=== PATIENT | male | born 1950 | race Caucasian/White ===

== ENCOUNTER 2018-10-11 10:46 | Emergency (ER) | payer MEDICARE, OTHER ==
[~2018-10-11] VITALS: Ht 167.6 cm; Wt 82.2 kg
[2018-10-11 10:52] VITALS: BP 167/77; PULSE 63; RESP 20; Ht 167.6 cm; Wt 82.2 kg
[2018-10-11] MEDS ORDERED: ACET500C5 PO (13:49)
--- NOTE | 2018-10-11 14:25 | ERD ---
ER Documentation Chief Complaint Chief Complaint Complains of right hand pain after a fall HPI 68-year-old male patient with a past medical history of prostate cancer, diabetes presents to the ED complaining of right hand pain, bilateral knee pain, right rib pain after accidentally falling on uneven curb. Denies any head or neck injuries. Denies any nausea, vomiting, headache, dizziness, abdominal pain, chest pain, shortness of breath, fever, chills. ROS All systems reviewed and are negative except as per history of present illness. Medications Home Meds Active Scripts Acetaminophen* (Tylophen*) 500 Mg Capsule, 1 CAP PO Q6H PRN for PAIN AND OR ELEVATED TEMP, #20 CAP Prov:LEONARDO LEWIS PA-C 10/11/18 PMhx/Soc Hx Alcohol Use: No Hx Substance Use: No Hx Tobacco Use: No Smoking Status: Never smoker FmHx Family History: No diabetes, No coronary disease Physical Exam Vitals Vital Signs Date Temp Pulse Resp B/P (MAP) Pulse Ox O2 O2 Flow FiO2 Time Delivery Rate 10/11/18 97.3 63 20 167/77 96 10:52 (107) Physical Exam Const: [id number], well-nourished. In no acute distress. Head: Atraumatic, normocephalic Eyes: Normal Conjunctiva without injection. No purulent discharge. PERRLA. EOMI ENT: Normal external ear. Ear canal without erythema. Tympanic membrane pearly ovalles without effusion or bulging. Nasal canal clear with normal turbinates. Moist oropharynx without tonsillar exudates. Non-erythematous pharynx. Uvula midline. No drooling. No trismus. Neck: No cervical midline tenderness. Full range of motion. No meningismus. No cervical lymphadenopathy. No JVD. Resp: Clear to auscultation bilaterally. No wheezing, rhonchi, rales, or crackles. No accessory muscle use. No retractions. Cardio: Regular rate and rhythm. No murmurs, rubs or gallops. Abd: Soft, non tender, non distended. Normal bowel sounds. No palpable masses. No rebound tenderness. No guarding. Negative McBurney's Point. Negative Gutierrez's Sign. Skin: Normal skin turgor. No petechiae or rashes Back: No midline tenderness. No CVA tenderness. Ext: No cyanosis, or edema. Distal pulses intact bilaterally. Neur: Awake and alert. Normal gait. Normal coordination. Cranial Nerves II- VII intact. Normal finger to nose. Muscle strength 5/5. Sensation intact. Psych: Normal Mood and Affect Procedures/MDM 68-year-old male patient with no significant past medical history presents to ED complaining of right hand injury, bilateral knee injury, right rib contusion. Patient is afebrile and nontoxic-appearing. A right rib x-ray, bilateral knee x-ray, chest x-ray was ordered to further evaluate patient. IMPRESSION: 1. Advanced degenerative changes of the wrist along with mild to moderate degenerative changes of the hand and diffuse osseous demineralization. 2. No acute osseous abnormality seen. IMPRESSION: 1. Osseous demineralization with moderate degenerative changes of the knee. IMPRESSION: 1. No acute osseous abnormality. Patient is placed in an erica wrap of right hand and bilateral knees. Splint Assessment: Neurovascularly intact pre and post splint placement with good fit. Patient's extremity symptoms have stabilized while they have been evaluated in the department and are appropriate for outpatient follow up. No evidence of fractures, dislocations, compartment syndrome, neurologic injury, vascular injury, open joint, open fracture, tendon laceration, septic arthritis, osteomyelitis, DVT, foreign body, or other emergent conditions. Low suspicion for acute myocardial infarction, pneumothorax, pericarditis, myocarditis, endocarditis, pneumonia, cardiac tamponade, pulmonary embolism, pleural effusion, AAA, aortic dissection, Boerhaave's syndrome, cardiac dysrhythmias,meningitis, intracranial bleed, seizure, stroke, TIA or other emergent conditions. Diagnosis: Injury of hand, Knee injury Discharge medications: Tylenol Follow up with primary care physician in 1-2 days. Instructed patient to return to the ED sooner for any worsening symptoms. Patient's questions were answered. Patient is hemodynamically stable. Patient understood and agreed with discharge plan. Patient discharged stable. Disclaimer: Inadvertent spelling and grammatical errors are likely due to EHR/dictation software use and do not reflect on the overall quality of patient care. Also, please note that the electronic time recorded on this note does not necessarily reflect the actual time of the patient encounter. Departure Diagnosis: Primary Impression: Injury of hand Encounter type: initial encounter Laterality: right Qualified Codes: S69.91XA - Unspecified injury of right wrist, hand and finger(s), initial encounter Additional Impression: Knee injury Encounter type: initial encounter Laterality: unspecified laterality Qualified Codes: S89.90XA - Unspecified injury of unspecified lower leg, initial encounter Condition: Stable Patient Instructions: Chest Wall Contusion, Knee Sprain, Sprain Hand Referrals: [facility] YOU HAVE RECEIVED A MEDICAL SCREENING EXAM AND THE RESULTS INDICATE THAT YOU DO NOT HAVE A CONDITION THAT REQUIRES URGENT TREATMENT IN THE EMERGENCY DEPARTMENT. FURTHER EVALUATION AND TREATMENT OF YOUR CONDITION CAN WAIT UNTIL YOU ARE SEEN IN YOUR DOCTORS OFFICE WITHIN THE NEXT 1-2 DAYS. IT IS YOUR RESPONSIBILITY TO MAKE AN APPOINTMENT FOR FOLOW-UP CARE. IF YOU HAVE A PRIMARY DOCTOR --you should call your primary doctor and schedule an appointment IF YOU DO NOT HAVE A PRIMARY DOCTOR YOU CAN CALL OUR PHYSICIAN REFERRAL HOTLINE AT IF YOU CAN NOT AFFORD TO SEE A PHYSICIAN YOU CAN CHOSE FROM THE FOLLOWING [facility] [address] [facility]. [facility] [address] [facility] [facility] [address] [facility] [address] [facility] [address] [facility]. [facility] [address] [facility] [place]. [facility] YOU HAVE RECEIVED A MEDICAL SCREENING EXAM AND THE RESULTS INDICATE THAT YOU DO NOT HAVE A CONDITION THAT REQUIRES URGENT TREATMENT IN THE EMERGENCY DEPARTMENT. FURTHER EVALUATION AND TREATMENT OF YOUR CONDITION CAN WAIT UNTIL YOU ARE SEEN IN YOUR DOCTORS OFFICE WITHIN THE NEXT 1-2 DAYS. IT IS YOUR RESPONSIBILITY TO MAKE AN APPOINTMENT FOR FOLOW-UP CARE. IF YOU HAVE A PRIMARY DOCTOR --you should call your primary doctor and schedule and appointment IF YOU DO NOT HAVE A PRIMARY DOCTOR YOU CAN CALL OUR PHYSICIAN REFERRAL HOTLINE AT . IF YOU CAN NOT AFFORD TO SEE A PHYSICIAN YOU CAN CHOSE FROM THE FOLLOWING [facility] INSTITUTIONS: [facility] [address] [place] [address] [facility] [address] [place] [address] [facility] [address] [place] [address] [facility] URGENT CARE/SPECIALTIES Additional Instructions: Call your primary care doctor TOMORROW for an appointment during the next 2-3 days.See the doctor sooner or return here if your condition worsens before your appointment time. LEONARDO LEWIS PA-C Oct 11, 2018 14:25
== END 2018-10-11 14:12 | disposition home or self-care (01) ==
LOC: FTE 10:46
DX: S69.91XA Unspecified injury of right wrist, hand and finger(s), initial encounter (principal); S89.91XA Unspecified injury of right lower leg, initial encounter; E11.9 Type 2 diabetes mellitus without complications; W10.1XXA Fall (on)(from) sidewalk curb, initial encounter; Y92.9 Unspecified place or not applicable; Z85.46 Personal history of malignant neoplasm of prostate
CPT/HCPCS: 71045; 73562

== ENCOUNTER 2018-11-24 08:51 | Inpatient (IN) | payer MEDICARE, OTHER ==
[~2018-11-24] VITALS: Ht 170.2 cm; Wt 80.5 kg
[~2018-11-24 08:51] MED LIST: ACET500C5 PO
[2018-11-24] MEDS ORDERED: METF100010 PO (10:36)
[2018-11-24] MEDS ORDERED: METO-407 PO (10:36)
[2018-11-24] MEDS ORDERED: CHOL200056 PO (10:37)
[2018-11-24] MEDS ORDERED: LINA5TAB PO (10:37)
[2018-11-24] MEDS ORDERED: FINA5TAB4 PO (10:38)
[2018-11-24] MEDS ORDERED: FOLI-49 PO (10:38)
[2018-11-24] MEDS ORDERED: ASPI-817 PO (10:38)
[2018-11-24] MEDS ORDERED: MET25 PO (10:40)
[2018-11-24] MEDS ORDERED: ATOR40TA68 PO (10:41)
[2018-11-24] MEDS ORDERED: OMEP40CA6 PO (10:41)
[2018-11-24] MEDS ORDERED: LOSA100T15 PO (10:42)
--- NOTE | 2018-11-24 10:57 | ERD ---
ER Documentation Chief Complaint Chief Complaint reported black/red stoos on radiation for prostate ca HPI 68-year-old male presents the emergency department complaining of GI bleed symptoms. Patient states that on and off for approximately 3 months now he has had occasional episodes of both black and red stool. He reports no abdominal pain. He reports of the last few days this is become increasing in frequency. He reports no fevers, chills, hemoptysis or hematemesis. Patient reports no hematuria. He reports no lightheadedness or other anemia related symptoms. ROS All systems reviewed and are negative except as per history of present illness. Medications Home Meds Reported Medications Losartan Potassium* (Losartan Potassium*) 100 Mg Tablet, 100 MG PO DAILY, TAB 11/24/18 Atorvastatin* (Atorvastatin*) 40 Mg Tablet, 40 MG PO QHS, #30 TAB 11/24/18 Omeprazole* (Omeprazole*) 40 Mg Capsule.dr, 40 MG PO BID, #30 CAP 11/24/18 Methotrexate* (Methotrexate*) 2.5 Mg Tab, 10 MG PO DAILY, TAB 11/24/18 Folic Acid* (Folic Acid*) 1 Mg Tablet, 1 MG PO DAILY, TAB 11/24/18 Aspirin* (Aspirin* EC) 81 Mg Tablet.dr, 81 MG PO DAILY, TAB 11/24/18 Finasteride* (Finasteride*) 5 Mg Tablet, 5 MG PO DAILY, TAB 11/24/18 Linagliptin (TRADJENTA) 5 Mg Tablet, 5 MG PO DAILY, TAB 11/24/18 Cholecalciferol (Vitamin D3) (Vitamin D-3) 2,000 Unit Tablet, 2000 UNIT PO DAILY, TAB 11/24/18 Metformin Hcl* (Metformin Hcl*) 1,000 Mg Tablet, 1000 MG PO WITH BREAKFAST DINNE, #60 TAB 11/24/18 Metoprolol Tartrate* (Lopressor*) 100 Mg Tablet, 100 MG PO BID, #60 TAB 11/24/18 Discontinued Scripts Acetaminophen* (Tylophen*) 500 Mg Capsule, 1 CAP PO Q6H PRN for PAIN AND OR ELEVATED TEMP, #20 CAP Prov:LEONARDO LEWIS PA-C 10/11/18 Allergies Allergies: Coded Allergies: No Known Allergy (Unverified , 11/24/18) PMhx/Soc History of Surgery: Yes (open heart ) Anesthesia Reaction: No Hx Neurological Disorder: No Hx Respiratory Disorders: No Hx Cardiac Disorders: Yes (htn) Hx Psychiatric Problems: No Hx Miscellaneous Medical Probl: Yes Hx Alcohol Use: No Hx Substance Use: No Hx Tobacco Use: No Smoking Status: Never smoker FmHx Noncontributory for chief complaint Physical Exam Vitals Vital Signs Date Temp Pulse Resp B/P (MAP) Pulse Ox O2 O2 Flow FiO2 Time Delivery Rate 11/24/18 98.4 61 18 175/74 99 09:01 (107) Physical Exam GENERAL: The patient is well developed and appropriate for usual state of health in no apparent distress HEENT: Pupils equal, round, and reactive to light. EOMI. There is no scleral icterus. NECK: C-spine is soft and supple, there is no meningismus. There is no cervical lymphadenopathy. LUNGS: Clear to auscultation bilaterally. There are no rales, wheezes or rhonchi. HEART: Regular rate and rhythm, no murmurs, clicks, rubs or gallops. Sternotomy is noted ABDOMEN: Soft, non-tender, non-distended. There are bowel sounds in all four quadrants. No rebound or guarding. EXTREMITIES: There is no peripheral cyanosis or edema. No focal swelling or erythema. NEURO: The patient moves all four extremities with 5/5 strength. Cranial nerves II - XII are intact. Normal gait. Alert and oriented SKIN: There is no apparent rash or petechiae. Appears pale HEME/LYMPHATIC: There is no evidence of excessive bruising or lymphedema. PSYCHIATRIC: The patient does not appear anxious or depressed. Result Diagram: 11/24/1892511/24/18925 Results 24 hrs Laboratory Tests Test 11/24/18 09:26 White Blood Count 3.9 10^3/ul Red Blood Count 3.82 10^6/ul Hemoglobin 10.8 g/dl Hematocrit 32.9 % Mean Corpuscular Volume 86.1 fl Mean Corpuscular Hemoglobin 28.3 pg Mean Corpuscular Hemoglobin Concent 32.8 g/dl Red Cell Distribution Width 14.4 % Platelet Count 132 10^3/UL Mean Platelet Volume 9.0 fl Immature Granulocytes % 0.500 % Neutrophils % 75.5 % Lymphocytes % 12.4 % Monocytes % 9.0 % Eosinophils % 2.3 % Basophils % 0.3 % Nucleated Red Blood Cells % 0.0 /100WBC Immature Granulocytes # 0.020 10^3/ul Neutrophils # 2.9 10^3/ul Lymphocytes # 0.5 10^3/ul Monocytes # 0.4 10^3/ul Eosinophils # 0.1 10^3/ul Basophils # 0.0 10^3/ul Nucleated Red Blood Cells # 0.0 10^3/ul Prothrombin Time 12.7 Sec Prothrombin Time Ratio 1.0 INR International Normalized Ratio 0.94 Activated Partial Thromboplast Time 29.2 Sec Sodium Level 142 mmol/L Potassium Level 4.0 mmol/L Chloride Level 106 mmol/L Carbon Dioxide Level 25 mmol/L Anion Gap 11 Blood Urea Nitrogen 23 mg/dl Creatinine 0.83 mg/dl Est Glomerular Filtrat Rate mL/min > 60 mL/min Glucose Level 224 mg/dl Calcium Level 9.5 mg/dl Total Bilirubin 0.4 mg/dl Direct Bilirubin 0.00 mg/dl Indirect Bilirubin 0.4 mg/dl Aspartate Amino Transf (AST/SGOT) 28 IU/L Alanine Aminotransferase (ALT/SGPT) 37 IU/L Alkaline Phosphatase 135 IU/L Troponin I < 0.012 ng/ml Total Protein 7.6 g/dl Albumin 4.5 g/dl Globulin 3.10 g/dl Albumin/Globulin Ratio 1.45 Procedures/MDM Patient was taken to a room, seen and evaluated. Comfort measures were initiated. Diagnostic tests were ordered and reviewed. 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 His abdominal exam is nontoxic with no evidence of diverticulitis. His hemoglobin is borderline low, but not requiring emergent transfusion. Given his comorbid conditions and risk factors, he will be admitted to the hospital for consideration of endoscopy/colonoscopy and other diagnostic work-up as well as monitoring of his hemoglobin. Departure Diagnosis: Primary Impression: GI bleed Additional Impression: Anemia Condition: Fair JAMIE KIMBALL Nov 24, 2018 10:57
[2018-11-24] MEDS ORDERED: NACL 0.9% 3 ML SYG IV SCH (14:30)
[2018-11-24] MEDS ORDERED: ONDANSETRON 4 MG INJ IV PRN (14:30)
[2018-11-24] MEDS ORDERED: ACETAMINOPHEN 325 MG TAB PO PRN (14:30)
[2018-11-24] MEDS ORDERED: DOCUSATE SODIUM 100 MG CAP PO PRN (14:30)
--- NOTE | 2018-11-24 14:40 | HP ---
Date/Time of Note Date/Time of Note DATE: 11/24/18 TIME: 14:32 Assessment/Plan VTE Prophylaxis SCD applied (from Nsg): Yes Pharmacological prophylaxis: NA/contraindicated Pharm contraindication: bleeding Lines/Catheters IV Catheter Type (from Nrsg): Saline Lock Assessment/Plan Hospital Course SUBJECTIVE: Seen and evaluated patient did ER room 1. Complaining of black stool, no acute distress. OBJECTIVE: Vital signs-see below PHYSICAL EXAM: Constitutional: Well-developed, well-nourished not in acute distress. HEENT: Head atraumatic and normocephalic. Eyes: Extraocular muscles intact. Anicteric sclerae. Pupils equal bilaterally, reactive to light. NECK: Supple without lymph node. CHEST: Clear and good breath sounds equally. No wheezing. No rhonchi. HEART: S1, S2. Regular rate and rhythm. ABDOMEN: Soft with no rebound tenderness. Bowel sounds were present. EXTREMITIES: Full range of motion in all the extremities. No cyanosis, clubbing or edema. NEUROLOGIC: Alert and oriented x3. No focal deficit. No sensory deficit. PSYCHOSOCIAL: In a good mood. No signs of depression. INTEGUMENTARY: Moist mucous membranes. Good skin turgor, intact. ASSESSMENT AND PLAN: 68-year-old male with history of prostate cancer, underwent chemo and radiation, coronary artery disease/CABG x5 vessels, vitamin D deficiency, type 2 diabetes, anemia, hypertension, dyslipidemia,here w/black stool x3-month duration who is also on aspirin.... Melena/ rectal bleed. Rule out UGIB/Gastritis/PUD vs other -Hold aspirin -N.p.o. and GI consult for EGD evaluation -Empiric PPI -Stool OB Anemia, acute vs chronic -Stable H&H. We will continue to trend H&H and will transfuse if indicated. -Obtain iron panel to a.m. labs and treat accordingly. Coronary artery disease/CABG x5 -Resume home medications except aspirin in light of #1. DMII -Resume Tradjenta and hold metformin. - Bolus/basal insulin Hypertension -Stable. Resume home medications Dyslipidemia -Rosuvastatin Prostate cancer -Status post radiation. Resume home medications Vitamin D deficiency. -resume sup DVT prophylaxis: SCDs PUD prophylaxis: PPI Rest of the management depend on hospital course. Next Approximately 60 m spent on this history and physical. Patient was seen in collaboration with Dr. Baker. Result Diagram: 11/24/1892511/24/18 0926 Results 24hrs Laboratory Tests Test 11/24/18 09:26 White Blood Count 3.9 L Red Blood Count 3.82 L Hemoglobin 10.8 L Hematocrit 32.9 L Mean Corpuscular Volume 86.1 Mean Corpuscular Hemoglobin 28.3 L Mean Corpuscular Hemoglobin Concent 32.8 Red Cell Distribution Width 14.4 Platelet Count 132 L Mean Platelet Volume 9.0 Immature Granulocytes % 0.500 H Neutrophils % 75.5 Lymphocytes % 12.4 L Monocytes % 9.0 Eosinophils % 2.3 Basophils % 0.3 Nucleated Red Blood Cells % 0.0 Immature Granulocytes # 0.020 Neutrophils # 2.9 Lymphocytes # 0.5 L Monocytes # 0.4 Eosinophils # 0.1 Basophils # 0.0 Nucleated Red Blood Cells # 0.0 Prothrombin Time 12.7 Prothrombin Time Ratio 1.0 INR International Normalized Ratio 0.94 Activated Partial Thromboplast Time 29.2 Sodium Level 142 Potassium Level 4.0 Chloride Level 106 Carbon Dioxide Level 25 Anion Gap 11 Blood Urea Nitrogen 23 H Creatinine 0.83 Est Glomerular Filtrat Rate mL/min > 60 Glucose Level 224 H Calcium Level 9.5 Total Bilirubin 0.4 Direct Bilirubin 0.00 Indirect Bilirubin 0.4 Aspartate Amino Transf (AST/SGOT) 28 Alanine Aminotransferase (ALT/SGPT) 37 Alkaline Phosphatase 135 H Troponin I < 0.012 Total Protein 7.6 Albumin 4.5 Globulin 3.10 Albumin/Globulin Ratio 1.45 HPI/ROS Admit Date/Time Admit Date/Time Hx of Present Illness This is a 68-year-old male with a history of prostate cancer, underwent chemo and radiation, coronary artery disease/CABG x5 vessels, vitamin D deficiency, type 2 diabetes, anemia, hypertension, dyslipidemia, presented to the emergency room for evaluation of black stool x3-month duration. Patient also had associated acid reflux/heart burn. Patient denied nausea, vomiting, hematochezia, hematemesis, hemoptysis, abdominal pain, fever constipation, diarrhea. Patient also denied chest pain, palpitation, dizziness, headache, loss of consciousness, speech difficulties, vision changes or others. In the emergency room, initial labs showed hemoglobin 10.8, hematocrit 32.9, glucose 224. Otherwise unremarkable. Coag studies normal. ROS A 12 point review of system was assessed and is negative other than what is mentioned in HPI. PMH/Family/Social Past Medical History See HPI Medications Current Medications Atorvastatin Calcium (Lipitor) 40 mg QHS PO ; Start 11/24/18 at 21:00; Status UNV Finasteride (Proscar) 5 mg DAILY PO ; Start 11/25/18 at 09:00; Status UNV Folic Acid (Folic Acid) 1 mg DAILY PO ; Start 11/25/18 at 09:00; Status UNV Linagliptin (Tradjenta) 5 mg DAILY PO ; Start 11/25/18 at 09:00; Status UNV Losartan Potassium (Cozaar) 100 mg DAILY PO ; Start 11/25/18 at 09:00; Status UNV Methotrexate (Methotrexate) 10 mg DAILY PO ; Start 11/25/18 at 09:00; Status UNV Metoprolol Tartrate (Lopressor) 100 mg BID PO ; Start 11/24/18 at 21:00; Status UNV Miscellaneous Information 2,000 unit DAILY PO ; Start 11/25/18 at 09:00; Status UNV Pantoprazole (Protonix Iv) 40 mg BID@06,18 IV ; Start 11/24/18 at 18:00; Status UNV IV Flush (NS 3 ml) 3 ml PER PROTOCOL IV ; Start 11/24/18 at 14:30; Status UNV Ondansetron HCl (Zofran Inj) 4 mg Q6H PRN IV NAUSEA/VOMITING; Start 11/24/18 at 14:30; Status UNV Acetaminophen (Tylenol Tab) 650 mg Q6H PRN PO .PAIN 1-3 OR TEMP; Start 11/24/18 at 14:30; Status UNV Docusate Sodium (Colace) 100 mg Q12H PRN PO .CONSTIPATION; Start 11/24/18 at 14:30; Status UNV Miscellaneous Information (* Miscellaneous Pharmacy Order) Discontinue current oral sulfonylur... ONCE ONCE XX ; Start 11/24/18 at 14:30; Stop 11/24/18 at 14:31; Status UNV Diagnostic Test (Pha) (Accu-Chek) 1 ea XX ; Start 11/25/18 at 02:00; Status UNV Insulin Glargine (Lantus) 12 units DAILY@2000 SC ; Start 11/24/18 at 20:00; Status UNV Miscellaneous Information (* Miscellaneous Pharmacy Order) HYPOGLYCEMIA PROTOCOL w... ONCE ONCE XX ; Start 11/24/18 at 14:30; Stop 11/24/18 at 14:31; Status UNV Insulin Aspart (Novolog Insulin Pen) NOVOLOG *MILD* ALGORI... Q4 SC ; Start 11/24/18 at 17:00; Status UNV Miscellaneous Information (* Miscellaneous Pharmacy Order) Discontinue all previ... ONCE ONCE XX ; Start 11/24/18 at 14:30; Stop 11/24/18 at 14:31; Status UNV Coded Allergies: No Known Allergy (Unverified , 11/24/18) Past Surgical History See HPI Social History Denied history of alcohol, smoking or illicit drug use Smoking Status: Never smoker Exam/Review of Systems Vital Signs Vitals Vital Signs Date Temp Pulse Resp B/P (MAP) Pulse Ox O2 O2 Flow FiO2 Time Delivery Rate 11/24/18 54 16 159/70 99 Room Air 12:00 (99) 11/24/18 98.4 09:01 FARIDEH BARCENAS NP Nov 24, 2018 14:40
[2018-11-24] MEDS ORDERED: DEXTROSE 50% 50 ML SYRINGE IV PRN ×2 (15:00)
[2018-11-24] MEDS ORDERED: GLUCAGON 1 MG INJ IM PRN (15:00)
[2018-11-24] MEDS ORDERED: BISACODYL (EC) 5 MG TAB PO ONE (15:00)
[2018-11-24] MEDS ORDERED: GLUCOSE GEL 15 GRAM TUBE BUCCAL PRN (15:00)
[2018-11-24] MEDS ORDERED: GLUCOSE GEL 15 GRAM TUBE PO PRN ×2 (15:00)
--- NOTE | 2018-11-24 15:31 | CONS ---
Assessment/Plan Assessment/Plan Hospital Course (Demo Recall) Summary Assessment and Plan: Assessment: Melena/BRBPR -R/o PUD vs gastritis vs proctitis vs other Normocytic anemia, mild Abdominal apin Coronary artery disease CABG x5 DM, type 2 Hypertension History of prostate cancer -S/p radiation Dyslipidemia Plan: Clear liquid diet NPO after 11/25/18 0900 EG/colonoscopy 11/25/18 Endoscopy - risks/benefits/alternatives/indications of procedure and sedation/anesthesia discussed with patient who states understanding and gives informed consent to proceed. Monitor labs Patient seen in collaboration with Dr. Gibbons CC: MARINA GIBBONS MD ; Consultation Date/Type/Reason Admit Date/Time Date of Consultation: Nov 24, 2018 Type of Consult GI Reason for Consultation GI bleed Date/Time of Note DATE: 11/24/18 TIME: 15:23 Hx of Present Illness This is a 68-year-old male with past medical history of Coronary artery disease, CABG x5, diabetes, hypertension, dyslipidemia, prostate cancer status post radiation, who presented to the hospital with complaints of intermittent abdominal pain and intermittent diarrhea as well as black stool and bright red blood per rectum x3 months. Been consulted for further evaluation hematology on admission. Hemoglobin is 10.8, hematocrit 32.9, MCV 86.1, MCH 28.3, INR 0.94 and normal LFTs with a mildly elevated alkaline phosphatase of 135 so far patient has had a chest x-ray showing no acute pulmonary disease cardiomegaly status post CABG. He states he did not come to the hospital earlier as he felt like stool was secondary to consumption of reasons mixed with tea. He notes daily aspirin use denies other NSAID use, additionally denies drug use or current smoking. He states his last EGD colonoscopy was in 2016 per patient both were negative. Given findings I discussed plan for EGD and colonoscopy with patient reviewed risk/benefits/alternatives of both sedation and procedures he verbalized understanding is agreeable to both procedures Review of Systems: A 12 system, review was conducted and is negative except as noted in the HPI or here. Past Medical History Home Meds Reported Medications Losartan Potassium* (Losartan Potassium*) 100 Mg Tablet, 100 MG PO DAILY, TAB 11/24/18 Atorvastatin* (Atorvastatin*) 40 Mg Tablet, 40 MG PO QHS, #30 TAB 11/24/18 Omeprazole* (Omeprazole*) 40 Mg Capsule.dr, 40 MG PO BID, #30 CAP 11/24/18 Methotrexate* (Methotrexate*) 2.5 Mg Tab, 10 MG PO DAILY, TAB 11/24/18 Folic Acid* (Folic Acid*) 1 Mg Tablet, 1 MG PO DAILY, TAB 11/24/18 Aspirin* (Aspirin* EC) 81 Mg Tablet.dr, 81 MG PO DAILY, TAB 11/24/18 Finasteride* (Finasteride*) 5 Mg Tablet, 5 MG PO DAILY, TAB 11/24/18 Linagliptin (TRADJENTA) 5 Mg Tablet, 5 MG PO DAILY, TAB 11/24/18 Cholecalciferol (Vitamin D3) (Vitamin D-3) 2,000 Unit Tablet, 2000 UNIT PO DAILY, TAB 11/24/18 Metformin Hcl* (Metformin Hcl*) 1,000 Mg Tablet, 1000 MG PO WITH BREAKFAST DINNE, #60 TAB 11/24/18 Metoprolol Tartrate* (Lopressor*) 100 Mg Tablet, 100 MG PO BID, #60 TAB 11/24/18 Discontinued Scripts Acetaminophen* (Tylophen*) 500 Mg Capsule, 1 CAP PO Q6H PRN for PAIN AND OR ELEVATED TEMP, #20 CAP Prov:LEONARDO LEWIS PA-C 10/11/18 Medications Current Medications Atorvastatin Calcium (Lipitor) 40 mg QHS PO ; Start 11/24/18 at 21:00 Finasteride (Proscar) 5 mg DAILY PO ; Start 11/25/18 at 09:00 Folic Acid (Folic Acid) 1 mg DAILY PO ; Start 11/25/18 at 09:00 Linagliptin (Tradjenta) 5 mg DAILY PO ; Start 11/25/18 at 09:00 Losartan Potassium (Cozaar) 100 mg DAILY PO ; Start 11/25/18 at 09:00 Methotrexate (Methotrexate) 10 mg Sa@0900 PO ; Start 11/27/18 at 09:00 Metoprolol Tartrate (Lopressor) 100 mg BID PO ; Start 11/24/18 at 21:00 Cholecalciferol (Vitamin D) 2,000 unit DAILY PO ; Start 11/25/18 at 09:00 Pantoprazole (Protonix Iv) 40 mg BID@06,18 IV ; Start 11/24/18 at 18:00 IV Flush (NS 3 ml) 3 ml PER PROTOCOL IV ; Start 11/24/18 at 14:30 Ondansetron HCl (Zofran Inj) 4 mg Q6H PRN IV NAUSEA/VOMITING; Start 11/24/18 at 14:30 Acetaminophen (Tylenol Tab) 650 mg Q6H PRN PO .PAIN 1-3 OR TEMP; Start 11/24/18 at 14:30 Docusate Sodium (Colace) 100 mg Q12H PRN PO .CONSTIPATION; Start 11/24/18 at 14:30 Diagnostic Test (Pha) (Accu-Chek) 1 ea 02 XX ; Start 11/25/18 at 02:00 Insulin Glargine (Lantus) 12 units DAILY@2000 SC ; Start 11/24/18 at 20:00 Insulin Aspart (Novolog Insulin Pen) NOVOLOG *MILD* ALGORI... Q4 SC ; Start 11/24/18 at 17:00 Magnesium Citrate (Citroma) 300 ml ONCE ONCE PO ; Start 11/24/18 at 17:30; Stop 11/24/18 at 17:31 Polyethylene Glycol (Miralax) 119 gm ONCE ONCE PO ; Start 11/24/18 at 18:30; Stop 11/24/18 at 18:31 Polyethylene Glycol (Miralax) 119 gm 2ND DOSE (GI PREP) ONCE PO ; Start 11/25/18 at 06:00; Stop 11/25/18 at 06:01 Bisacodyl (Dulcolax) 10 mg 2ND DOSE (GI PREP) ONCE PO ; Start 11/25/18 at 08:00; Stop 11/25/18 at 08:01 Miscellaneous Information 1 ea NOTE XX ; Start 11/24/18 at 15:00 Glucose (Glutose) 15 gm Q15M PRN PO DECREASED GLUCOSE; Start 11/24/18 at 15:00 Glucose (Glutose) 22.5 gm Q15M PRN PO DECREASED GLUCOSE; Start 11/24/18 at 15:00 Dextrose (D50w Syringe) 25 ml Q15M PRN IV DECREASED GLUCOSE; Start 11/24/18 at 15:00 Dextrose (D50w Syringe) 50 ml Q15M PRN IV DECREASED GLUCOSE; Start 11/24/18 at 15:00 Glucagon (Glucagen) 1 mg Q15M PRN IM DECREASED GLUCOSE; Start 11/24/18 at 15:00 Glucose (Glutose) 15 gm Q15M PRN BUCCAL DECREASED GLUCOSE; Start 11/24/18 at 15:00 Allergies: Coded Allergies: No Known Allergy (Unverified , 11/24/18) Social History Smoking Status: Never smoker Exam/Review of Systems Exam Vitals Vital Signs Date Temp Pulse Resp B/P (MAP) Pulse Ox O2 O2 Flow FiO2 Time Delivery Rate 11/24/18 54 16 159/70 99 Room Air 12:00 (99) 11/24/18 98.4 09:01 Constitutional: alert, oriented Psych: no complaints, nl mood/affect Head: normocephalic, atraumatic Eyes: nl conjunctiva, EOMI ENMT: nl external ears & nose, nl lips & teeth Neck: supple, non-tender Respiratory: clear to auscultation, normal air movement Cardiovascular: regular rate and rhythm, nl pulses Gastrointestinal: soft, bowel sounds, tender (epigastric ) Genitourinary - Male: nl penis Musculoskeletal: nl extremities to inspection Results Result Diagram: 11/24/1826 11/24/18 0926 Results 24hrs Laboratory Tests Test 11/24/18 09:26 White Blood Count 3.9 L Red Blood Count 3.82 L Hemoglobin 10.8 L Hematocrit 32.9 L Mean Corpuscular Volume 86.1 Mean Corpuscular Hemoglobin 28.3 L Mean Corpuscular Hemoglobin Concent 32.8 Red Cell Distribution Width 14.4 Platelet Count 132 L Mean Platelet Volume 9.0 Immature Granulocytes % 0.500 H Neutrophils % 75.5 Lymphocytes % 12.4 L Monocytes % 9.0 Eosinophils % 2.3 Basophils % 0.3 Nucleated Red Blood Cells % 0.0 Immature Granulocytes # 0.020 Neutrophils # 2.9 Lymphocytes # 0.5 L Monocytes # 0.4 Eosinophils # 0.1 Basophils # 0.0 Nucleated Red Blood Cells # 0.0 Prothrombin Time 12.7 Prothrombin Time Ratio 1.0 INR International Normalized Ratio 0.94 Activated Partial Thromboplast Time 29.2 Sodium Level 142 Potassium Level 4.0 Chloride Level 106 Carbon Dioxide Level 25 Anion Gap 11 Blood Urea Nitrogen 23 H Creatinine 0.83 Est Glomerular Filtrat Rate mL/min > 60 Glucose Level 224 H Calcium Level 9.5 Total Bilirubin 0.4 Direct Bilirubin 0.00 Indirect Bilirubin 0.4 Aspartate Amino Transf (AST/SGOT) 28 Alanine Aminotransferase (ALT/SGPT) 37 Alkaline Phosphatase 135 H Troponin I < 0.012 Total Protein 7.6 Albumin 4.5 Globulin 3.10 Albumin/Globulin Ratio 1.45 Carcinoembryonic Antigen < 0.3 Medications Medication Current Medications Atorvastatin Calcium (Lipitor) 40 mg QHS PO ; Start 11/24/18 at 21:00 Finasteride (Proscar) 5 mg DAILY PO ; Start 11/25/18 at 09:00 Folic Acid (Folic Acid) 1 mg DAILY PO ; Start 11/25/18 at 09:00 Linagliptin (Tradjenta) 5 mg DAILY PO ; Start 11/25/18 at 09:00 Losartan Potassium (Cozaar) 100 mg DAILY PO ; Start 11/25/18 at 09:00 Methotrexate (Methotrexate) 10 mg Sa@0900 PO ; Start 11/27/18 at 09:00 Metoprolol Tartrate (Lopressor) 100 mg BID PO ; Start 11/24/18 at 21:00 Cholecalciferol (Vitamin D) 2,000 unit DAILY PO ; Start 11/25/18 at 09:00 Pantoprazole (Protonix Iv) 40 mg BID@,18 IV ; Start 11/24/18 at 18:00 IV Flush (NS 3 ml) 3 ml PER PROTOCOL IV ; Start 11/24/18 at 14:30 Ondansetron HCl (Zofran Inj) 4 mg Q6H PRN IV NAUSEA/VOMITING; Start 11/24/18 at 14:30 Acetaminophen (Tylenol Tab) 650 mg Q6H PRN PO .PAIN 1-3 OR TEMP; Start 11/24/18 at 14:30 Docusate Sodium (Colace) 100 mg Q12H PRN PO .CONSTIPATION; Start 11/24/18 at 14:30 Diagnostic Test (Pha) (Accu-Chek) 1 ea 02 XX ; Start 11/25/18 at 02:00 Insulin Glargine (Lantus) 12 units DAILY@2000 SC ; Start 11/24/18 at 20:00 Insulin Aspart (Novolog Insulin Pen) NOVOLOG *MILD* ALGORI... Q4 SC ; Start 11/24/18 at 17:00 Magnesium Citrate (Citroma) 300 ml ONCE ONCE PO ; Start 11/24/18 at 17:30; Stop 11/24/18 at 17:31 Polyethylene Glycol (Miralax) 119 gm ONCE ONCE PO ; Start 11/24/18 at 18:30; Stop 11/24/18 at 18:31 Polyethylene Glycol (Miralax) 119 gm 2ND DOSE (GI PREP) ONCE PO ; Start 11/25/18 at 06:00; Stop 11/25/18 at 06:01 Bisacodyl (Dulcolax) 10 mg 2ND DOSE (GI PREP) ONCE PO ; Start 11/25/18 at 08:00; Stop 11/25/18 at 08:01 Miscellaneous Information 1 ea NOTE XX ; Start 11/24/18 at 15:00 Glucose (Glutose) 15 gm Q15M PRN PO DECREASED GLUCOSE; Start 11/24/18 at 15:00 Glucose (Glutose) 22.5 gm Q15M PRN PO DECREASED GLUCOSE; Start 11/24/18 at 15:00 Dextrose (D50w Syringe) 25 ml Q15M PRN IV DECREASED GLUCOSE; Start 11/24/18 at 15:00 Dextrose (D50w Syringe) 50 ml Q15M PRN IV DECREASED GLUCOSE; Start 11/24/18 at 15:00 Glucagon (Glucagen) 1 mg Q15M PRN IM DECREASED GLUCOSE; Start 11/24/18 at 15:00 Glucose (Glutose) 15 gm Q15M PRN BUCCAL DECREASED GLUCOSE; Start 11/24/18 at 15:00 TYLOR TADEO Nov 24, 2018 15:31
[2018-11-24] MEDS ORDERED: MAGNESIUM CITRATE 300 ML BTL PO ONE (17:30)
[2018-11-24] MEDS ORDERED: POLYETHYLENE GLYCOL 3350 119 GM POWDER PO ONE (18:30)
[2018-11-24 19:40] VITALS: Ht 170.2 cm; Wt 80.5 kg
[2018-11-24 20:26] VITALS: BP 186/82; PULSE 53; RESP 18
[2018-11-24 20:45] VITALS: BP 169/77
[2018-11-24] MEDS: INSULIN ASPART [NOVOLOG] 3 ML PEN SC SCH (21:00)
[2018-11-24] MEDS: ATORVASTATIN 40 MG TAB PO SCH (21:47)
[2018-11-24] MEDS: PANTOPRAZOLE 40 MG INJ IV SCH (22:38)
[2018-11-24] MEDS: INSULIN GLARGINE [LANTus] (100 UNITS/ML) SYG SC SCH (23:00)
[2018-11-24] MEDS: METOPROLOL 100 MG TAB PO SCH (23:27)
[2018-11-25] VITALS (12 sets, daily range): BP systolic 109–162; BP diastolic 59–82; PULSE 53–65; RESP 16–22
[2018-11-25] MEDS: INSULIN ASPART [NOVOLOG] 3 ML PEN SC SCH ×6 (01:22→20:55)
[2018-11-25] MEDS ORDERED: ACCU-CHEK XX SCH (02:00)
[2018-11-25] MEDS ORDERED: POLYETHYLENE GLYCOL 3350 119 GM POWDER PO ONE (06:00)
[2018-11-25] MEDS: PANTOPRAZOLE 40 MG INJ IV SCH ×2 (06:20→17:32)
[2018-11-25] MEDS ORDERED: PROPOFOL 200 MG INJ ONE (07:00)
[2018-11-25] MEDS ORDERED: LIDOCAINE 2% (SDV) 5 ML INJ ONE (07:00)
[2018-11-25] MEDS ORDERED: BISACODYL (EC) 5 MG TAB PO ONE (08:00)
[2018-11-25] MEDS: FOLIC ACID 1 MG TAB PO SCH (08:45)
[2018-11-25] MEDS: CHOLECALCIFEROL 2,000 UNIT CAP PO SCH (08:45)
[2018-11-25] MEDS: FINASTERIDE 5 MG TAB PO SCH (08:46)
[2018-11-25] MEDS: METOPROLOL 100 MG TAB PO SCH ×2 (08:46→20:53)
[2018-11-25] MEDS: LOSARTAN 50 MG TAB PO SCH (08:46)
[2018-11-25] MEDS: LINAGLIPTIN 5 MG TABLET PO SCH (08:50)
--- NOTE | 2018-11-25 12:39 | PN ---
Date/Time of Note Date/Time of Note DATE: 11/25/18 TIME: 12:37 Assessment/Plan VTE Prophylaxis Risk score (from Ns)>0 risk: 4 SCD applied (from Ns): Yes Pharmacological prophylaxis: NA/contraindicated Pharm contraindication: bleeding Lines/Catheters IV [facility]from [facility] Urinary Cath still in place: No Assessment/Plan Hospital Course SUBJECTIVE: No further rectal bleed, melena or abdominal discomfort. OBJECTIVE: Vital signs-see below PHYSICAL EXAM: Constitutional: Well-developed, well-nourished not in acute distress. HEENT: Head atraumatic and normocephalic. Eyes: Extraocular muscles intact. Anicteric sclerae. Pupils equal bilaterally, reactive to light. NECK: Supple without lymph node. CHEST: Clear and good breath sounds equally. No wheezing. No rhonchi. HEART: S1, S2. Regular rate and rhythm. ABDOMEN: Soft with no rebound tenderness. Bowel sounds were present. EXTREMITIES: Full range of motion in all the extremities. No cyanosis, clubbing or edema. NEUROLOGIC: Alert and oriented x3. No focal deficit. No sensory deficit. PSYCHOSOCIAL: In a good mood. No signs of depression. INTEGUMENTARY: Moist mucous membranes. Good skin turgor, intact. ASSESSMENT AND PLAN: 68-year-old male with history of prostate cancer, underwent chemo and radiation, coronary artery disease/CABG x5 vessels, vitamin D deficiency, type 2 diabetes, anemia, hypertension, dyslipidemia,here w/black stool x3-month duration who is also on aspirin.... Melena/ rectal bleed. Rule out UGIB/Gastritis/PUD vs other -Continue holding aspirin -Plan is EGD/colonoscopy today -Empiric PPI -Pending stool OB Anemia, acute vs chronic -Stable H&H. -Iron panel noted. Monitor Coronary artery disease/CABG x5 -Continue medical management except aspirin in light of #1. DMII -Well-controlled. - Bolus/basal insulin/Tradjenta Hypertension -Stable. CONT. home medications Dyslipidemia -cont. statin Prostate cancer -Status post radiation. cont. home medications Vitamin D deficiency. -cont sup DVT prophylaxis: SCDs PUD prophylaxis: PPI Disposition: Follow-up GI recommendations. Follow-up endoscopy/colonoscopy findings. DC planning in 24 hours if no further bleeding and H&H stable. Patient was seen in collaboration with Dr. Baker. Result Diagram: 11/25/18 0551 11/25/18 0551 Results 24hrs Laboratory Tests Test 11/24/18 16:23 11/24/18 21:30 11/24/18 22:56 11/25/18 01:18 Hemoglobin 10.3 L Hematocrit 31.5 L Bedside Glucose 115 140 181 Test 11/25/18 05:22 11/25/18 05:51 11/25/18 08:50 Bedside Glucose 126 158 White Blood Count 4.0 L Red Blood Count 3.88 L Hemoglobin 10.9 L Hematocrit 33.3 L Mean Corpuscular 85.8 Volume Mean Corpuscular 28.1 L Hemoglobin Mean Corpuscular 32.7 Hemoglobin Concent Red Cell 14.5 Distribution Width Platelet Count 134 L Mean Platelet Volume 8.9 Immature 0.300 Granulocytes % Neutrophils % 72.3 Lymphocytes % 12.4 L Monocytes % 12.4 H Eosinophils % 2.3 Basophils % 0.3 Nucleated Red Blood 0.0 Cells % Immature 0.010 Granulocytes # Neutrophils # 2.9 Lymphocytes # 0.5 L Monocytes # 0.5 Eosinophils # 0.1 Basophils # 0.0 Nucleated Red Blood 0.0 Cells # Sodium Level 142 Potassium Level 4.0 Chloride Level 106 Carbon Dioxide Level 26 Anion Gap 10 Blood Urea Nitrogen 16 Creatinine 0.78 Est Glomerular > 60 Filtrat Rate mL/min Glucose Level 143 # Hemoglobin A1c 6.3 H Calcium Level 9.4 Phosphorus Level 5.0 H Magnesium Level 2.0 Total Bilirubin 0.5 Direct Bilirubin 0.00 Indirect Bilirubin 0.5 Aspartate Amino 27 Transf (AST/SGOT) Alanine 35 Aminotransferase (AL T/SGPT) Alkaline Phosphatase 140 H Total Protein 7.2 Albumin 4.3 Globulin 2.90 Albumin/Globulin 1.48 Ratio Triglycerides Level 273 H Cholesterol Level 159 LDL Cholesterol, 78 Calculated HDL Cholesterol 26 L Cholesterol/HDL 6.1 Ratio Exam/Review of Systems Exam Vitals Vital Signs Date Temp Pulse Resp B/P (MAP) Pulse Ox O2 O2 Flow FiO2 Time Delivery Rate 11/25/18 97.8 58 16 158/82 95 Room Air 07:15 (107) Intake and Output 11/24/18 11/24/18 11/25/18 1515:00 23:00 07:00 IntakeIntake Total 1200 ml BalanceBalance 1200 ml Results Results 24hrs Laboratory Tests Test 11/24/18 16:23 11/24/18 21:30 11/24/18 22:56 11/25/18 01:18 Hemoglobin 10.3 L Hematocrit 31.5 L Bedside Glucose 115 140 181 Test 11/25/18 05:22 11/25/18 05:51 11/25/18 08:50 Bedside Glucose 126 158 White Blood Count 4.0 L Red Blood Count 3.88 L Hemoglobin 10.9 L Hematocrit 33.3 L Mean Corpuscular 85.8 Volume Mean Corpuscular 28.1 L Hemoglobin Mean Corpuscular 32.7 Hemoglobin Concent Red Cell 14.5 Distribution Width Platelet Count 134 L Mean Platelet Volume 8.9 Immature 0.300 Granulocytes % Neutrophils % 72.3 Lymphocytes % 12.4 L Monocytes % 12.4 H Eosinophils % 2.3 Basophils % 0.3 Nucleated Red Blood 0.0 Cells % Immature 0.010 Granulocytes # Neutrophils # 2.9 Lymphocytes # 0.5 L Monocytes # 0.5 Eosinophils # 0.1 Basophils # 0.0 Nucleated Red Blood 0.0 Cells # Sodium Level 142 Potassium Level 4.0 Chloride Level 106 Carbon Dioxide Level 26 Anion Gap 10 Blood Urea Nitrogen 16 Creatinine 0.78 Est Glomerular > 60 Filtrat Rate mL/min Glucose Level 143 # Hemoglobin A1c 6.3 H Calcium Level 9.4 Phosphorus Level 5.0 H Magnesium Level 2.0 Total Bilirubin 0.5 Direct Bilirubin 0.00 Indirect Bilirubin 0.5 Aspartate Amino 27 Transf (AST/SGOT) Alanine 35 Aminotransferase (AL T/SGPT) Alkaline Phosphatase 140 H Total Protein 7.2 Albumin 4.3 Globulin 2.90 Albumin/Globulin 1.48 Ratio Triglycerides Level 273 H Cholesterol Level 159 LDL Cholesterol, 78 Calculated HDL Cholesterol 26 L Cholesterol/HDL 6.1 Ratio Medications Medication Current Medications Atorvastatin Calcium (Lipitor) 40 mg QHS PO Last administered on 11/24/18at 21:47; Admin Dose 40 MG; Start 11/24/18 at 21:00 Finasteride (Proscar) 5 mg DAILY PO Last administered on 11/25/18at 08:46; Admin Dose 5 MG; Start 11/25/18 at 09:00 Folic Acid (Folic Acid) 1 mg DAILY PO Last administered on 11/25/18at 08:45; Admin Dose 1 MG; Start 11/25/18 at 09:00 Linagliptin (Tradjenta) 5 mg DAILY PO Last administered on 11/25/18at 08:50; Admin Dose 5 MG; Start 11/25/18 at 09:00 Losartan Potassium (Cozaar) 100 mg DAILY PO Last administered on 11/25/18at 08:46; Admin Dose 100 MG; Start 11/25/18 at 09:00 Methotrexate (Methotrexate) 10 mg Sa@0900 PO ; Start 11/27/18 at 09:00 Metoprolol Tartrate (Lopressor) 100 mg BID PO Last administered on 11/25/18at 08:46; Admin Dose 100 MG; Start 11/24/18 at 21:00 Cholecalciferol (Vitamin D) 2,000 unit DAILY PO Last administered on 11/25/18 08:45; Admin Dose 2,000 UNIT; Start 11/25/18 at 09:00 Pantoprazole (Protonix Iv) 40 mg BID@06,18 IV Last administered on 11/25/18 06:20; Admin Dose 40 MG; Start 11/24/18 at 18:00 IV Flush (NS 3 ml) 3 ml PER PROTOCOL IV ; Start 11/24/18 at 14:30 Ondansetron HCl (Zofran Inj) 4 mg Q6H PRN IV NAUSEA/VOMITING; Start 11/24/18 at 14:30 Acetaminophen (Tylenol Tab) 650 mg Q6H PRN PO .PAIN 1-3 OR TEMP; Start 11/24/18 at 14:30 Docusate Sodium (Colace) 100 mg Q12H PRN PO .CONSTIPATION; Start 11/24/18 at 14:30 Insulin Glargine (Lantus) 12 units DAILY@1999 SC Last administered on 11/24/18at 23:00; Admin Dose 12 UNITS; Start 11/24/18 at 20:00 Insulin Aspart (Novolog Insulin Pen) NOVOLOG *MILD* ALGORI... Q4 SC Last administered on 11/25/18at 08:52; Admin Dose 1 UNIT; Start 11/24/18 at 17:00 Miscellaneous Information 1 ea NOTE XX ; Start 11/24/18 at 15:00 Glucose (Glutose) 15 gm Q15M PRN PO DECREASED GLUCOSE; Start 11/24/18 at 15:00 Glucose (Glutose) 22.5 gm Q15M PRN PO DECREASED GLUCOSE; Start 11/24/18 at 15:00 Dextrose (D50w Syringe) 25 ml Q15M PRN IV DECREASED GLUCOSE; Start 11/24/18 at 15:00 Dextrose (D50w Syringe) 50 ml Q15M PRN IV DECREASED GLUCOSE; Start 11/24/18 at 15:00 Glucagon (Glucagen) 1 mg Q15M PRN IM DECREASED GLUCOSE; Start 11/24/18 at 15:00 Glucose (Glutose) 15 gm Q15M PRN BUCCAL DECREASED GLUCOSE; Start 11/24/18 at 15:00 Miscellaneous Information Patients own medicat... BID@10,16 XX ; Start 11/25/18 at 10:00 FARIDEH BARCENAS NP Nov 25, 2018 12:39
--- NOTE | 2018-11-25 15:26 | HPN ---
Date/Time of Note Date/Time of Note DATE: 11/25/18 TIME: 15:26 Interval H&P Admission Note Pt. seen H&P reviewed: No system changes JYOTHI TOURE Nov 25, 2018 15:26
--- NOTE | 2018-11-25 15:37 | PREAC ---
Date/Time of Note Date/Time of Note DATE: 11/25/18 TIME: 15:34 Anesthesia Eval and Record Evaluation Time Pre-Procedure Interview DATE: 11/25/18 TIME: 15:34 Age 68 Sex male NPO: 8 hrs Preoperative diagnosis melena, gi bleed Planned procedure EGD, colonoscopy Past Medical History Past Medical History: Includes Cardio: HTN, Dyslipidemia, CO, CAD, CABG, CHF Endo: Diabetes Renal: Other (prostate CA) GI: GERD, Other (gi bleed) Heme: Anemia Surgery & Anesthesia Issues No known issue Meds Anticoagulation: No Beta Christine within 24 hr: Yes Reported Medications Losartan Potassium* (Losartan Potassium*) 100 Mg Tablet, 100 MG PO DAILY, TAB 11/24/18 Atorvastatin* (Atorvastatin*) 40 Mg Tablet, 40 MG PO QHS, #30 TAB 11/24/18 Omeprazole* (Omeprazole*) 40 Mg Capsule.dr, 40 MG PO BID, #30 CAP 11/24/18 Methotrexate* (Methotrexate*) 2.5 Mg Tab, 10 MG PO DAILY, TAB 11/24/18 Folic Acid* (Folic Acid*) 1 Mg Tablet, 1 MG PO DAILY, TAB 11/24/18 Aspirin* (Aspirin* EC) 81 Mg Tablet.dr, 81 MG PO DAILY, TAB 11/24/18 Finasteride* (Finasteride*) 5 Mg Tablet, 5 MG PO DAILY, TAB 11/24/18 Linagliptin (TRADJENTA) 5 Mg Tablet, 5 MG PO DAILY, TAB 11/24/18 Cholecalciferol (Vitamin D3) (Vitamin D-3) 2,000 Unit Tablet, 2000 UNIT PO DAILY, TAB 11/24/18 Metformin Hcl* (Metformin Hcl*) 1,000 Mg Tablet, 1000 MG PO WITH BREAKFAST DINNE, #60 TAB 11/24/18 Metoprolol Tartrate* (Lopressor*) 100 Mg Tablet, 100 MG PO BID, #60 TAB 11/24/18 Discontinued Scripts Acetaminophen* (Tylophen*) 500 Mg Capsule, 1 CAP PO Q6H PRN for PAIN AND OR ELEVATED TEMP, #20 CAP Prov:LEONARDO LEWIS PA-C 10/11/18 Current Medications Atorvastatin Calcium (Lipitor) 40 mg QHS PO Last administered on 11/24/18at 21:47; Admin Dose 40 MG; Start 11/24/18 at 21:00 Finasteride (Proscar) 5 mg DAILY PO Last administered on 11/25/18 08:46; Admin Dose 5 MG; Start 11/25/18 at 09:00 Folic Acid (Folic Acid) 1 mg DAILY PO Last administered on 11/25/18 08:45; Admin Dose 1 MG; Start 11/25/18 at 09:00 Linagliptin (Tradjenta) 5 mg DAILY PO Last administered on 11/25/18 08:50; Admin Dose 5 MG; Start 11/25/18 at 09:00 Losartan Potassium (Cozaar) 100 mg DAILY PO Last administered on 11/25/18 08:46; Admin Dose 100 MG; Start 11/25/18 at 09:00 Methotrexate (Methotrexate) 10 mg Sa@0900 PO ; Start 11/27/18 at 09:00 Metoprolol Tartrate (Lopressor) 100 mg BID PO Last administered on 11/25/18 08:46; Admin Dose 100 MG; Start 11/24/18 at 21:00 Cholecalciferol (Vitamin D) 2,000 unit DAILY PO Last administered on 11/25/18 08:45; Admin Dose 2,000 UNIT; Start 11/25/18 at 09:00 Pantoprazole (Protonix Iv) 40 mg BID@06,18 IV Last administered on 11/25/18 06:20; Admin Dose 40 MG; Start 11/24/18 at 18:00 IV Flush (NS 3 ml) 3 ml PER PROTOCOL IV ; Start 11/24/18 at 14:30 Ondansetron HCl (Zofran Inj) 4 mg Q6H PRN IV NAUSEA/VOMITING; Start 11/24/18 at 14:30 Acetaminophen (Tylenol Tab) 650 mg Q6H PRN PO .PAIN 1-3 OR TEMP; Start 11/24/18 at 14:30 Docusate Sodium (Colace) 100 mg Q12H PRN PO .CONSTIPATION; Start 11/24/18 at 14:30 Insulin Glargine (Lantus) 12 units DAILY@2000 SC Last administered on 11/24/18 23:00; Admin Dose 12 UNITS; Start 11/24/18 at 20:00 Insulin Aspart (Novolog Insulin Pen) NOVOLOG *MILD* ALGORI... Q4 SC Last administered on 4/25/19at 14:17; Admin Dose 1 UNIT; Start 11/24/18 at 17:00 Miscellaneous Information 1 ea NOTE XX ; Start 11/24/18 at 15:00 Glucose (Glutose) 15 gm Q15M PRN PO DECREASED GLUCOSE; Start 11/24/18 at 15:00 Glucose (Glutose) 22.5 gm Q15M PRN PO DECREASED GLUCOSE; Start 11/24/18 at 15:00 Dextrose (D50w Syringe) 25 ml Q15M PRN IV DECREASED GLUCOSE; Start 11/24/18 at 15:00 Dextrose (D50w Syringe) 50 ml Q15M PRN IV DECREASED GLUCOSE; Start 11/24/18 at 15:00 Glucagon (Glucagen) 1 mg Q15M PRN IM DECREASED GLUCOSE; Start 11/24/18 at 15:00 Glucose (Glutose) 15 gm Q15M PRN BUCCAL DECREASED GLUCOSE; Start 11/24/18 at 15:00 Miscellaneous Information Patients own medicat... BID@10,16 XX ; Start 11/25/18 at 10:00 Meds reviewed: Yes Allergies Coded Allergies: No Known Allergy (Unverified , 11/24/18) Allergies Reviewed: Yes Labs/Studies Labs Reviewed: Reviewed by anesthesiologist Result Diagram: 11/25/18 0551 11/25/18 0551 Laboratory Tests 11/25/18 05:51 test: N/A Studies: ECG Pre-procedure Exam Last vitals Vital Signs Date Temp Pulse Resp B/P (MAP) Pulse Ox O2 O2 Flow FiO2 Time Delivery Rate 11/25/18 97.9 57 18 141/66 97 Room Air 15:29 (91) Airway: Adequate mouth opening, Adequate thyromental dist Mallampati: Mallampati III Teeth: Normal Lung: Normal Heart: Normal ASA Physical Status ASA physical status: 3 Emergency: E Planned Anesthetic General/MAC: MAC Planned Pain Management Parenteral pain med Pre-operative Attestations Prior to commencing anesthesia and surgery, the patient was re-evaluated, there was verification of: *The patient's identity *The results of appropriate recent lab work and preoperative vital signs *The above evaluation not changing prior to induction *Anesthetic plan, risk benefits, alternative and complications discussed with patient/family; questions answered; patient/family understands, accepts and wishes to proceed. ELINA CHANEY MD Nov 25, 2018 15:36
--- NOTE | 2018-11-25 16:15 | PAC ---
Date/Time of Note Date/Time of Note DATE: 11/25/18 TIME: 16:15 Post-Anesthesia Notes Post-Anesthesia Note Last documented vital signs Vital Signs Date Temp Pulse Resp B/P (MAP) Pulse Ox O2 O2 Flow FiO2 Time Delivery Rate 11/25/18 97.9 57 18 141/66 97 Room Air 15:29 (91) Activity: WNL Respiratory function: WNL Cardiovascular function: WNL Mental status: Baseline Pain reasonably controlled: Yes Hydration appropriate: Yes Nausea/Vomiting absent: Yes ELINA CHANEY MD Nov 25, 2018 16:15
[2018-11-25] MEDS: ATORVASTATIN 40 MG TAB PO SCH (20:53)
[2018-11-25] MEDS: INSULIN GLARGINE [LANTus] (100 UNITS/ML) SYG SC SCH (20:54)
[2018-11-26 02:00] VITALS: BP 123/65; PULSE 58; RESP 19
[2018-11-26] MEDS ORDERED: ACCU-CHEK XX SCH (02:00)
[2018-11-26] MEDS: PANTOPRAZOLE 40 MG INJ IV SCH (05:40)
[2018-11-26] MEDS: INSULIN ASPART [NOVOLOG] 3 ML PEN SC SCH ×2 (08:05→12:00)
[2018-11-26] MEDS: CHOLECALCIFEROL 2,000 UNIT CAP PO SCH (08:08)
[2018-11-26] MEDS: LINAGLIPTIN 5 MG TABLET PO SCH (08:08)
[2018-11-26] MEDS: FINASTERIDE 5 MG TAB PO SCH (08:08)
[2018-11-26] MEDS: FOLIC ACID 1 MG TAB PO SCH (08:09)
[2018-11-26] MEDS: LOSARTAN 50 MG TAB PO SCH (08:13)
[2018-11-26] MEDS: METOPROLOL 100 MG TAB PO SCH (08:13)
[2018-11-26 08:26] VITALS: BP 143/65; PULSE 55; RESP 19
--- NOTE | 2018-11-26 10:09 | PDOCDIS ---
Discharge Instructions CONDITION [id number] Patient Condition: [id number] Guarded HOME CARE INSTRUCTIONS: [id number] Your diet recommendation is: [id number] carbohydrate-controlled FOLLOW UP/APPOINTMENTS Follow-up Plan Follow-up with in 4 weeks Name, Degree Minerva Gibbons MD Specialty Gastroenterology Comments Office Address [id number] [id number] Office Follow-up with primary care physician in 1 week FARIDEH BARCENAS NP Nov 26, 2018 10:09
[2018-11-26] MEDS ORDERED: CARAS PO (10:11)
[2018-11-26] MEDS ORDERED: [UNRECOGNIZED DRUG - OTHER] PR (10:11)
[2018-11-26] MEDS ORDERED: PANT40TA4 PO (10:11)
--- NOTE | 2018-11-26 10:19 | DS ---
Date/Time of Note Date/Time of Note DATE: 11/26/18 TIME: 10:15 Discharge Summary Admission/Discharge Info Admit Date/Time Nov 25, 2018 at 12:33 Discharge Date/Time Discharge Diagnosis Melena/ rectal bleed 2/radiation proctitis Gastritis/gastric ulcer nonbleeding/duodenitis Chronic Anemia Coronary artery disease/CABG x5 DMII Hypertension Dyslipidemia Prostate cancer Vitamin D deficiency. Patient Condition: Stable Consults ,GI Procedures 11/25/2018: EGD: Findings: Non-bleeding gastric ulcer/gastritis/duodenitis 11/25/2018: Colonoscopy: Findings: Radiation proctitis/successful treatment with APC anticoagulation Hx of Present Illness This is a 68-year-old male with a history of prostate cancer, underwent chemo and radiation, coronary artery disease/CABG x5 vessels, vitamin D deficiency, type 2 diabetes, anemia, hypertension, dyslipidemia, presented to the emergency room for evaluation of black stool x3-month duration. Patient also had associated acid reflux/heart burn. Patient denied nausea, vomiting, hematochezia, hematemesis, hemoptysis, abdominal pain, fever constipation, diarrhea. Patient also denied chest pain, palpitation, dizziness, headache, loss of consciousness, speech difficulties, vision changes or others. In the emergency room, initial labs showed hemoglobin 10.8, hematocrit 32.9, glucose 224. Otherwise unremarkable. Coag studies normal. Hospital Course 68-year-old male with history of prostate cancer, underwent chemo and radiation, coronary artery disease/CABG x5 vessels, vitamin D deficiency, type 2 diabetes, anemia, hypertension, dyslipidemia,here w/black stool x3-month duration who is also on aspirin.... Patient's hemoglobin remained stable. He underwent EGD and colonoscopy on 11/25/2018, showed nonbleeding gastric ulcers, gastritis, and duodenitis. Stacey ent also noted to have radiation proctitis with rectal telangiectasia for which he had successful treatment with APC coagulation and recommended hydrocortisone enema for 10 days. Patient did not have any further bleeding. He was stable to resume on aspirin. Patient was given prescription for 30 days Protonix twice daily, Carafate 4 times daily and 9 more days on hydrocortisone rectal suppository. Patient is stable for outpatient follow-up. Patient to call GI office for endoscopy/colonoscopy pathology report which he verbalized understanding. Approximately 60 m spent on coordinating the discharge on this patient. Patient was seen in collaboration with Dr. Baker. Home Meds Active Scripts Hydrocortisone* Rectal (Colocort Enema*) 100 Mg/60 Ml Soln, 100 MG AL HS for 9 Days, #9 DOSE Prov:BARCENASCANELOA V. [employer]LE CARD [employer]ENDER 11/26/18 Sucralfate* (Carafate*) 1 Gm/10 Ml Susp, 1 GM PO QID, #120 DOSE Prov:BARCENAS,FARIDEH V. MIDDLE CARD T[employer]ER 11/26/18 Pantoprazole* (Pantoprazole*) 40 Mg Tablet., 40 MG PO BID@,18, #60 TAB Prov:BARCENASWILLYFARIDEH V. [employer] C[employer] T[employer]ER 11/26/18 Reported Medications Losartan Potassium* (Losartan Potassium*) 100 Mg Tablet, 100 MG PO DAILY, TAB 11/24/18 Atorvastatin* (Atorvastatin*) 40 Mg Tablet, 40 MG PO QHS, #30 TAB 11/24/18 Omeprazole* (Omeprazole*) 40 Mg Capsule., 40 MG PO BID, #30 CAP 11/24/18 Methotrexate* (Methotrexate*) 2.5 Mg Tab, 10 MG PO DAILY, TAB 11/24/18 Folic Acid* (Folic Acid*) 1 Mg Tablet, 1 MG PO DAILY, TAB 11/24/18 Aspirin* (Aspirin* EC) 81 Mg Tablet.dr, 81 MG PO DAILY, TAB 11/24/18 Finasteride* (Finasteride*) 5 Mg Tablet, 5 MG PO DAILY, TAB 11/24/18 Linagliptin (TRADJENTA) 5 Mg Tablet, 5 MG PO DAILY, TAB 11/24/18 Cholecalciferol (Vitamin D3) (Vitamin D-3) 2,000 Unit Tablet, 2000 UNIT PO DAILY, TAB 11/24/18 Metformin Hcl* (Metformin Hcl*) 1,000 Mg Tablet, 1000 MG PO WITH BREAKFAST DINNE, #60 TAB 11/24/18 Metoprolol Tartrate* (Lopressor*) 100 Mg Tablet, 100 MG PO BID, #60 TAB 11/24/18 Discontinued Scripts Acetaminophen* (Tylophen*) 500 Mg Capsule, 1 CAP PO Q6H PRN for PAIN AND OR ELEVATED TEMP, #20 CAP Prov:LEONARDO LEWIS PA-C 10/11/18 Follow-up Plan Follow-up with in 4 weeks-You can request pathology report through his office Follow-up with primary care physician in 1 week Primary Care Provider Not On Staff Doctor Pending Labs Laboratory Tests Test 11/25/18 14:12 11/25/18 17:29 11/25/18 20:51 11/26/18 02:06 Bedside 154 131 207 165 Glucose mg/dL (70-220) mg/dL (70-220) mg/dL (70-220) mg/dL (70-220) Hemoglobin 10.9 g/dl (14.0-18. 0) Hematocrit 33.0 % (42.0-52.0) Test 11/26/18 05:40 11/26/18 08:02 Hemoglobin 10.5 g/dl (14.0-18.0 ) Hematocrit 31.9 % (42.0-52.0) Bedside 180 Glucose mg/dL (70-220) FARIDEH BARCENAS V. [employer]ER Nov 26, 2018 10:19
[2018-11-26] MEDS ORDERED: PRAMOXINE/HC 10 GM RECT FOAM PR SCH (12:30)
[2018-11-26] MEDS ORDERED: SUCRALFATE (100 MG/ML) 10ML CUP PO SCH (13:00)
[2018-11-26 14:53] VITALS: BP 154/69; PULSE 56; RESP 18
[2018-11-26] MEDS ORDERED: PANTOPRAZOLE (EC) 40 MG TAB PO SCH (18:00)
[2018-11-26] MEDS ORDERED: HYDROCORTISONE 100 MG/60 ML ENEMA PR SCH (21:00)
[2018-11-27] MEDS ORDERED: METHOTREXATE 2.5 MG TAB PO SCH (09:00)
== END 2018-11-26 15:46 | disposition home or self-care (01) | DRG 379 ==
LOC: E/R 08:51 → PP2 10:58 → OBSVTOIN 11-25 12:33
PROVIDERS: ADMIT Hospitalist; ATTEND Hospitalist
PROC: 0DB98ZX Excision of Duodenum, Via Natural or Artificial Opening Endoscopic, Diagnostic (ICD-10-PCS; principal; 2018-11-25 14:30)
PROC: 0W3P8ZZ Control Bleeding in Gastrointestinal Tract, Via Natural or Artificial Opening Endoscopic (ICD-10-PCS; 2018-11-25 14:30)
DX: K92.1 Melena (principal); E11.9 Type 2 diabetes mellitus without complications; D64.9 Anemia, unspecified; E78.5 Hyperlipidemia, unspecified; E55.9 Vitamin D deficiency, unspecified; K25.9 Gastric ulcer, unspecified as acute or chronic, without hemorrhage or perforation; K62.7 Radiation proctitis; K29.70 Gastritis, unspecified, without bleeding; K29.80 Duodenitis without bleeding; I25.10 Atherosclerotic heart disease of native coronary artery without angina pectoris; I10 Essential (primary) hypertension; K21.9 Gastro-esophageal reflux disease without esophagitis; Z79.4 Long term (current) use of insulin; Z95.1 Presence of aortocoronary bypass graft; Z85.46 Personal history of malignant neoplasm of prostate
CPT/HCPCS: 36415; 71045; 80053; 80061; 82378; 82728; 82962; 83036; 83540; 83735; 84100; 84484; 85014; 85018; 85025; 85610; 85730; 86850; 86870; 86900; 86901; 86902; 88305; 93005; G0378; C9113; J1815